=== PATIENT | male | born 1985 | race African-American/Black ===

== ENCOUNTER 2020-03-14 08:36 | Emergency (ER) | payer SELFPAY ==
[2020-03-14 08:42] VITALS: BP 186/127; PULSE 90; RESP 16; TEMP 36.6; O2SAT 100; BMI 32.5
--- NOTE | 2020-03-14 08:45 | DI.RAD.S_ITS ---
PROCEDURE: XR WRIST RT MIN 3V INDICATIONS: pain related to fall TECHNIQUE: 4 views of the wrist were acquired. COMPARISON: None. FINDINGS: Bones: No fractures or dislocations. No suspicious bony lesions. Scaphoid view: No trauma Soft tissues: No suspicious soft tissue calcifications. IMPRESSION: No trauma found. If there is clinical concern for presence of hidden fracture follow-up by delayed plain films or advanced imaging, such as CT or MRI, could be obtained. The normal superimposition of multiple osseous margins in this area reduces the study's ability to detect nondisplaced fractures. Dictated by: Ja Carmichael M.D. on 03/14/2020 at 9:07 Approved by: Ja Carmichael M.D. on 03/14/2020 at 9:07
--- NOTE | 2020-03-14 08:45 | DI.RAD.S_ITS ---
PROCEDURE: XR ELBOW RT MIN 3V INDICATIONS: pain related to fall TECHNIQUE: 3 views of the elbow were acquired. COMPARISON: None. FINDINGS: Bones: No significantly displaced fractures or dislocations but there is a somewhat subtle transverse band of sclerosis across the base of the radial head, with an appearance suggestive of slightly impacted fracture at that site, without extension to the articular surface.. No suspicious bony lesions. Soft tissues: Moderate elbow joint effusion. No suspicious soft tissue calcifications. IMPRESSION: High probability of slightly impacted fracture across the base of the radial head, without intra-articular extension. Joint effusion present both anteriorly and posteriorly, and a presumed fracture with this appearance should become clearly evident by delayed plain films in several days. Dictated by: Ja Carmichael M.D. on 03/14/2020 at 9:07 Approved by: Ja Carmichael M.D. on 03/14/2020 at 9:10
--- NOTE | 2020-03-14 09:12 | ED_ITS ---
HPI - Extremity Injury (Upper) General Chief Complaint: Extremity Injury, Upper Stated Complaint: right arm injury Time Seen by Provider: 03/14/20 08:44 Source: patient Mode of arrival: Ambulatory Limitations: no limitations History of Present Illness HPI narrative: Patient is a 35-year-old male who presents with right elbow is and wrist pain. He says he jumped from the deck into the pool yesterday showing offer the kids but landed on his elbow. It is still sore today but he seems to be able move it. He denies numbness or tingling. He denies any other injury MD complaint: injury to: right, elbow and wrist Related Data Previous Rx's Medication Instructions Recorded hydrocodone-acetaminophen [[place]] 1 tab PO Q6H PRN #10 tab 03/14/20 Allergies Allergy/AdvReac Type Severity Reaction Status Date / Time No Known Drug Allergies Allergy Verified 03/14/20 08:47 Review of Systems Review of Systems Narrative: GENERAL: Denies chills,fever HEENT: Denies throat pain RESPIRATORY: Denies dyspnea, cough, wheezing CARDIOVASCULAR: Denies chest pain, palpitations GASTROINTESTINAL: Denies nausea, vomiting MUSCULOSKELETAL: See HPI SKIN: No rash, no laceration, no pruritus NEUROLOGIC: Denies weakness, dizziness, headache, numbness 8 point review of systems is negative except for those stated above and HPI Patient History Social History Smoking Status: Current every day smoker Smoking Status: Current every day smoker tobacco type: cigarettes alcohol intake frequency: 0-2 drinks per day Substance Use Type: does not use Exam Initial Vital Signs Initial Vital Signs: Vital Signs Temperature 98 F 03/14/20 08:42 Pulse Rate 90 03/14/20 08:42 Respiratory Rate 16 03/14/20 08:42 Blood Pressure 186/127 H 03/14/20 08:42 Pulse Oximetry 100 03/14/20 08:42 GENERAL: Well-appearing, well-nourished and in no acute distress. CARDIOVASCULAR: peripheral pulses in tact, cap refill <2 sec RESPIRATORY: No respiratory distress, speaks in full sentences without difficulty EXTREMITIES: Normal range of motion, no clubbing or edema. Neurovascularly intact Right upper extremity: Wrist has no gross bony deformity he is able to flex and extend wrist, neurovascularly intact in her reading in median ulnar nerve distributions distal radial pulse also present. The elbow is slightly tender and slight pain with pronation and supination NEUROLOGICAL: Cranial nerves II through XII grossly intact. Normal gait and speech. SKIN: Warm, dry, no petechiae, no rashes or lesions. Procedures Orthopedic Splinting/Casting Injury #1: Side: right Upper Extremity Injury Location: elbow Upper Extremity Immobilizer: sling/shoulder immobilizer Post splinting neuro exam: intact Post splinting vascular exam: intact Placed by: Nursing Course Orders Ordered: ED Orders 03/14/20 08:45 XR elbow RT min 3V Stat XR wrist RT min 3V Stat Vital Signs Vital signs: Vital Signs - 8 hr 03/14/20 08:42 03/14/20 09:35 Temperature 98 F Pulse Rate 90 84 Respiratory Rate 16 16 Blood Pressure 186/127 H Pulse Oximetry 100 98 MDM - Extremity Injury (Upper) Imaging Data Extremity x-ray #1: Radiologist's Impression: PROCEDURE: XR ELBOW RT MIN 3V INDICATIONS: pain related to fall TECHNIQUE: 3 views of the elbow were acquired. COMPARISON: None. FINDINGS: Bones: No significantly displaced fractures or dislocations but there is a somewhat subtle transverse band of sclerosis across the base of the radial head, with an appearance suggestive of slightly impacted fracture at that site, without extension to the articular surface.. No suspicious bony lesions. Soft tissues: Moderate elbow joint effusion. No suspicious soft tissue calcifications. IMPRESSION: High probability of slightly impacted fracture across the base of the radial head, without intra-articular extension. Joint effusion present both anteriorly and posteriorly, and a presumed fracture with this appearance should become clearly evident by delayed plain films in several days. Dictated by: Ja Carmichael M.D. on 03/14/2020 at 9:07 Approved by: Ja Carmichael M.D. on 03/14/2020 at 9:10 Extremity x-ray #2: Radiologist's Impression: PROCEDURE: XR WRIST RT MIN 3V INDICATIONS: pain related to fall TECHNIQUE: 4 views of the wrist were acquired. COMPARISON: None. FINDINGS: Bones: No fractures or dislocations. No suspicious bony lesions. Scaphoid view: No trauma Soft tissues: No suspicious soft tissue calcifications. IMPRESSION: No trauma found. If there is clinical concern for presence of hidden fracture follow-up by delayed plain films or advanced imaging, such as CT or MRI, could be obtained. The normal superimposition of multiple osseous margins in this area reduces the study's ability to detect nondisplaced fractures. Dictated by: Ja Carmichael M.D. on 03/14/2020 at 9:07 Discharge Plan Departure Patient Disposition: Home Clinical Impression: Closed fracture of radial head Qualifiers: Encounter type: initial encounter Fracture alignment: nondisplaced Laterality: right Qualified Code(s): S52.124A - Nondisplaced fracture of head of right radius, initial encounter for closed fracture Discharge Date/Time: 03/14/20 09:41 Instructions: DI for Elbow Fracture Activity Restrictions/Additional Instructions: *You have been diagnosed with right radial head fracture *What to do: Wear sling at all times except he may take off to shower. This will take 6-8 weeks to heal fully *Continue to take medications as directed [place] 1 tablet every 6 hours if needed for severe pain or at night to help sleep (325 mg of Tylenol is in this medication) Tylenol 650 mg every 6 hours if needed for [id number] pain--do not exceed more than 4000 mg in 24 hours *Follow up with your primary care provider in 2-3 days, call orthopedics to schedule follow-up appointment in 1-2 weeks *Return to ER if you should have increased pain numbness or tingling or any new, worsening or concerning symptoms CONTROLLED SUBSTANCE DISCHARGE (Narcotoic/benzodiazepine/Flexeril/Phenergan) 1. You have been prescribed narcotic medications, it does have acetaminophen/Tylenol/paracetamol in it so do not take extra Tylenol or Tylenol containing products TRAMADOL DOES NOT CONTAIN TYLENOL 2. Please understand that we cannot provide further refills of narcotics, benzodiazepines or controlled substances through the ED and her pain management will need to be through your provider. 3. While on these medications you cannot drive or operate heavy machinery. 4. You cannot sign legal documents or perform any duties such as this. 5. As long as you're taking opiate pain medications he should also be taking a stool softener such as Colace, Dulcolax, MiraLAX or prune juice, to help avoid constipation. Prescriptions: New hydrocodone-acetaminophen [[place]] 5-325 mg tablet 1 tab PO Q6H PRN (Reason: pain) Qty: 10 RF: 0 Referrals: [facility] [Provider Group] [facility] [Outside]
[2020-03-14 09:35] VITALS: PULSE 84; RESP 16; O2SAT 98
== END 2020-03-14 09:41 | disposition home or self-care (01) ==
PROVIDERS: Emergency Provider Emergency Medicine
DX: S52.124A Nondisplaced fracture of head of right radius, initial encounter for closed fracture (principal); W19.XXXA Unspecified fall, initial encounter
CPT/HCPCS: 73080; 73110; 99281; 99283